=== PATIENT | female | born 1985 | race Caucasian/White ===

== ENCOUNTER 2017-02-21 17:17 | Emergency (ER) | payer OTHER ==
[~2017-02-21] VITALS: Ht 162.6 cm; Wt 110.2 kg
[~2017-02-21 17:17] MED LIST: FLEXERIL10 MG PO; MOBIC15 MG PO; VIBRAMYCIN 100100 MG PO
[2017-02-21 17:20] VITALS: BP 135/81
--- NOTE | 2017-02-21 17:36 | ED INFLUENZA/URI COMPLAINT ---
History of Present Illness General Chief Complaint: General Adult Stated Complaint: PT HAS A DRY COUGH Source: patient Exam Limitations: no limitations Vital Signs & Intake/Output Vital Signs & Intake/Output Vital Signs Date Time Temp Pulse Resp B/P B/P Pulse O2 O2 Flow FiO2 Mean Ox Delivery Rate 02/21 1720 98.8 100 18 135/81 98 Room Air Allergies Coded Allergies: amoxicillin (Severe, ANAPHYLAXIS 02/21/17) mushroom (ANAPHYLAXIS 02/21/17) Reconcile Medications Azithromycin (Zithromax) 250 MG TABLET 1 DP PO AD URI 2 the first day followed by 1 for days 2-5 Vit No.130/Iron/FA ( Tablet) 27 MG IRON-800 MCG TABLET 1 TAB PO DAILY (Reported) Triage Note: PT STATES THAT SHE IS 3 MONTHS AND THAT SHE HAS HAD A DRY COUGH SINCE YESTERDAY. AFEBRILE Triage Nurses Notes Reviewed? yes : Yes Patient currently breastfeeds: No Past History Travel History Traveled to [place] past 21 day No Medical History Any Pertinent Medical History? 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 No Departure Departure Condition: Stable Referrals: PATIENT HAS NO PRIMARY CARE DR (PCP/Family) Departure Forms: Customer Survey General Discharge Information Prescriptions: Current Visit Scripts Azithromycin (Zithromax) 1 DP PO AD #6 TAB 2 the first day followed by 1 for days 2-5
--- NOTE | 2017-02-21 17:48 | ED INFLUENZA/URI COMPLAINT ---
History of Present Illness General Chief Complaint: General Adult Stated Complaint: PT HAS A DRY COUGH Source: patient Exam Limitations: no limitations Vital Signs & Intake/Output Vital Signs & Intake/Output Vital Signs Date Time Temp Pulse Resp B/P B/P Pulse O2 O2 Flow FiO2 Mean Ox Delivery Rate 02/21 1720 98.8 100 18 135/81 98 Room Air Allergies Coded Allergies: amoxicillin (Severe, ANAPHYLAXIS 02/21/17) mushroom (ANAPHYLAXIS 02/21/17) Reconcile Medications Azithromycin (Zithromax) 250 MG TABLET 1 DP PO AD URI 2 the first day followed by 1 for days 2-5 Vit No.130/Iron/FA ( Tablet) 27 MG IRON-800 MCG TABLET 1 TAB PO DAILY (Reported) Triage Note: PT STATES THAT SHE IS 3 MONTHS AND THAT SHE HAS HAD A DRY COUGH SINCE YESTERDAY. AFEBRILE Triage Nurses Notes Reviewed? yes Onset: Abrupt Duration: day(s): (1), constant Timing: recent history Severity: mild, moderate No Modifying Factors: none : Yes Patient currently breastfeeds: No HPI: 31-year-old female comes into emergency room for further evaluation of cough runny nose sore throat sinus congestion. Cough is dry. Symptoms of going on since yesterday. Some mild associated tightness with the cough. Denies any chest pain otherwise or shortness of breath. Denies any fever or vomiting. Denies any abdominal pain or vaginal bleeding or leakage of fluid. Denies any complications in the so far. Positive sick contacts with with family friend. (LEMUEL KAMARA) Past History Travel History Traveled to [place] past 21 day No Medical History Any Pertinent Medical History? 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 No (LEMUEL KAMARA) Review of Systems Review of Systems Constitutional: Reports: see HPI. EENTM: Reports: see HPI. Respiratory: Reports: see HPI. Cardiovascular: Reports: no symptoms. GI: Reports: no symptoms. Genitourinary: Reports: no symptoms. Musculoskeletal: Reports: no symptoms. Skin: Reports: no symptoms. Neurological/Psychological: Reports: no symptoms. Hematologic/Endocrine: Reports: no symptoms. Immunologic/Allergic: Reports: no symptoms. All Other Systems: Reviewed and Negative (LEMUEL KAMARA) Physical Exam Physical Exam General Appearance: well developed/nourished, alert, awake Head: atraumatic, normal appearance Eyes: Bilateral: normal appearance, EOMI. Ears, Nose, Throat: normal ENT inspection, moist mucous membrane, hearing grossly normal Neck: normal inspection, supple Respiratory: normal breath sounds, no respiratory distress Cardiovascular: regular rate/rhythm Back: normal inspection Extremities: normal inspection, normal range of motion, no edema Neurologic/Psych: awake, alert, oriented x 3 Skin: intact, normal color Core Measures Severe Sepsis Present: No Septic Shock Present: No (LEMUEL KAMARA) Progress Differential Diagnosis: influenza, meningitis, neutropenia, otitis, pneumonia, pharyngitis, sinusitis Plan of Care: 02/21/2017 6:03:45 PM Patient clinically looks well. Patient is nontoxic-appearing. Patient is in no apparent distress. Symptoms are most consistent with upper respiratory infection/sinusitis/bronchitis. Patient cover with amoxicillin. Symptoms are likely viral. No suspicion for any other event such as pulmonary embolism or PR. Patient has all symptoms to go along with viral illness. Case discussed with Dr. Caputo. Patient will follow up appropriately. Return if any other concerns worsening symptoms. Initial ED EKG: none (LEMUEL KAMARA) Departure Departure Disposition: HOME OR SELF CARE Condition: Stable Clinical Impression Primary Impression: URI (upper respiratory infection) Referrals: PATIENT HAS NO PRIMARY CARE DR (PCP/Family) Additional Instructions: Taking z-pack as prescribed. Rest. Drink fluids. 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 Follow-up with your primary care doctor. Return if any concerns worsening symptoms. Please go over all results of today's visit with your primary care doctor. Contact your primary care doctor to let them know you were here in the emergency room. There may be nonspecific findings which may not be related to your visit today here in the emergency room but may require further evaluation and chronic monitoring by your primary care doctor. If you had a laceration today the chance of foreign body always remains. You should follow-up with your primary care doctor for recheck in 3-5 days for a wound check. If you had an x-ray done there is a chance that a fracture could have been missed on initial read and you should follow-up with your primary care doctor for repeat x-rays if symptoms persist. If your blood pressure was elevated here in the emergency room please have rechecked by her primary care doctor within the next 48 hours by your primary care doctor. If you were prescribed a narcotic here in the emergency room or any type of controlled substances you're not allowed to drive while taking this medication or operate any type of heavy machinery. Narcotics can make you feel lightheaded dizziness nausea and can cause constipation. You may need to meat pickler a stool softener. Thank you for choosing [facility] emergency room. Please return to the emergency room immediately if you have any other concerns worsening of symptoms. 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 I have also reviewed all the pertinent lab results and diagnostic results. I agree with the findings and the plan of care as documented in the PA's/WHOLESALE LOAN PROCESSOR's documentation. [X] I have reviewed the ED Record and agree with the PA's/WHOLESALE LOAN PROCESSOR's documentation. [] Additions or exceptions (if any) to the PAs/WHOLESALE LOAN PROCESSOR's note and plan are summarized below: [] (MAX ELIAS,SERJIO Gutierrez)
[2017-02-21] MEDS ORDERED: ZITHROMAX250 M2 PO (17:52)
[2017-02-21] MEDS ORDERED: PRENATAL TABLE1 EAC2 PO (17:53)
== END 2017-02-21 18:02 ==
LOC: ERH 17:17
DX: J06.9 Acute upper respiratory infection, unspecified (principal)

== ENCOUNTER 2017-12-17 09:03 | Emergency (ER) | payer OTHER ==
[~2017-12-17] VITALS: Ht 162.6 cm; Wt 104.3 kg
[~2017-12-17 09:03] MED LIST changes: +IBUPROFEN800 M1 PO; +PRENATAL TABLE1 EAC2 PO; +ZITHROMAX250 M2 PO
--- NOTE | 2017-12-17 10:07 | ED CARDIAC/CP/PALPITATIONS ---
History of Present Illness General Chief Complaint: Chest Pain Stated Complaint: CP Source: patient Exam Limitations: no limitations Vital Signs & Intake/Output Vital Signs & Intake/Output Vital Signs Date Time Temp Pulse Resp B/P B/P Pulse O2 O2 Flow FiO2 Mean Ox Delivery Rate 12/17 1129 97.8 77 20 140/68 96 Room Air 12/17 1108 97.0 12/17 0909 97.0 77 20 137/84 99 Room Air Allergies Coded Allergies: amoxicillin (Severe, ANAPHYLAXIS 02/21/17) mushroom (ANAPHYLAXIS 02/21/17) Reconcile Medications Cyclobenzaprine HCl 5 MG TABLET 1 TAB PO Q12P PRN Muscle Pain Please avoid taking the medication if you anticipate driving as it may cause sedation Diclofenac Potassium 50 MG TABLET 1 TAB PO Q8P PRN Pain Triage Note: PT C/O CP SINCE 399. STATES SHE THOUGHT IT WAS HEARTBURN AND TOOK 2 ASA. PT DENIES SOB. Triage Nurses Notes Reviewed? yes Onset: Abrupt Duration: hour(s): (6) Timing: single episode today Quality/Severity: moderate, tightness Location: central Radiation: no radiation Activities at Onset: none Prior Chest Pain/Card Workup: no prior chest pain Nitro Today/Relief: no nitro taken today Aspirin Today: 81 mg x 2 : No Patient currently breastfeeds: No HPI: 32 yo F with no PMH presents to the ED with complains of chest pain since this morning. The patient states that she woke up at around 4am this morning, with a chest tightness in the center of her chest. She took two aspirin which did not provide her any relief. She describes the pain as a tightness, non radiating, aggravating with breathing out, without any associated factors. No prior similar episodes. No associated symptoms. Has heartburn occasionally but states this one is completely different. Smokes 10-15 cigarettes a day. (Zaina ELIAS,[facility]) Past History Travel History Traveled to [place] past 21 day No Medical History Any Pertinent Medical History? 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 Yes (Becky Mahajan MD) Review of Systems Review of Systems Constitutional: Denies: chills, fever. EENTM: Reports: no symptoms. Respiratory: Denies: cough, short of breath. Cardiovascular: Reports: chest pain. GI: Denies: abdominal pain. Genitourinary: Reports: no symptoms. Musculoskeletal: Denies: joint pain. Skin: Reports: no symptoms. Neurological/Psychological: Reports: no symptoms. (Becky Mahajan MD) Physical Exam Physical Exam General Appearance: well developed/nourished, alert, awake, mild distress Head: atraumatic, normal appearance Eyes: Bilateral: normal appearance. Respiratory: normal breath sounds, chest non-tender, lungs clear Cardiovascular: regular rate/rhythm, midline chest wall tenderness Gastrointestinal: soft, non-tender Extremities: no edema Neurologic/Psych: awake, alert, oriented x 3 Skin: intact, normal color Core Measures ACS in differential dx? No CVA/TIA Diagnosis No Sepsis Present: No Sepsis Focused Exam Completed? No (Becky Mahajan MD) Progress Differential Diagnosis: musculoskeletal pain Plan of Care: Orders Procedure Date/time Status TROPONIN LEVEL 12/17 1001 Complete CBC WITHOUT DIFFERENTIAL 12/17 1001 Complete BASIC ELECTROLYTES PLUS BUN&CR 12/17 1001 Complete EKG 12/17 0903 Active Laboratory Tests 12/17/17 1022: Anion Gap 14, Estimated GFR > 60, BUN/Creatinine Ratio 16.7, Troponin I < 0.01, CBC w Diff NO MAN DIFF REQ, RBC 5.05, MCV 90.2, MCH 31.0, MCHC 34.3, RDW 13.9, MPV 8.5, Gran % 61.8, Lymphocytes % 29.8, Monocytes % 6.6, Eosinophils % 1.1, Basophils % 0.7, Absolute Granulocytes 5.7, Absolute Lymphocytes 2.8, Absolute Monocytes 0.6, Absolute Eosinophils 0.1, Absolute Basophils 0.1 Initial ED EKG: NSR Comments: Patient's blood work has been negative for ACS so far. Plan of care was to obtain a second set of troponins and EKG 3 hours apart. However, the patient does not want to wait another 3 hours for a repeat blood work as she has a kid waiting at home. She has been strongly advised to return to the ED if her symptoms worsen. Also to follow up with her PCP within one week of discharge. She understands. (Becky Mahajan MD) Departure Departure Time of Disposition: 1120 Disposition: HOME OR SELF CARE Condition: Stable Clinical Impression Primary Impression: Musculoskeletal chest pain Referrals: Patient Has No Primary Care Dr (PCP/Family) Additional Instructions: Please follow up with your primary care physician within one week of discharge. Please return to the ED for any worsening symptoms or concerns. Departure Forms: Customer Survey General Discharge Information Prescriptions: Current Visit Scripts Diclofenac Potassium 1 TAB PO Q8P PRN Pain #20 TAB Cyclobenzaprine HCl 1 TAB PO Q12P PRN Muscle Pain #20 TAB Please avoid taking the medication if you anticipate driving as it may cause sedation (Becky Mahajan MD) Resident Co-Sign Statement Statement: ED Attending supervision documentation- [x] I saw and evaluated the patient. I have also reviewed all the pertinent lab results and diagnostic results. I agree with the findings and the plan of care as documented in the Resident's documentation. [] I have reviewed the ED Record and agree with the Resident's documentation. [] Additions or exceptions (if any) to the Resident's note and plan are summarized below: [] (Samira ELIAS,Theron Calero) Critical Care Note Critical Care Note Critical Care Time: non-applicable (Becky Mahajan MD)
[2017-12-17 10:32] LABS: ABSOLUTE BASOPHIL COUNT 0.1 /CUMM (0.0-0.2); ABSOLUTE EOSINOPHIL COUNT 0.1 /CUMM (0.0-0.7); ABSOLUTE GRANULOCYTE CT 5.7 /CUMM (1.4-6.5); ABSOLUTE LYMPH COUNT 2.8 /CUMM (1.2-3.4); ABSOLUTE MONOCYTE COUNT 0.6 /CUMM (0.10-0.60); BASOPHIL % 0.7 % (0.0-2.0); EOSINOPHIL % 1.1 % (0-5); GRANULOCYTE % 61.8 % (42.2-75.2); HEMATOCRIT 45.6 % (37-47); MEAN CORPUSCULAR HGB CONC 34.3 G/DL (33.0-37.0); MEAN CORPUSCULAR VOLUME 90.2 FL (81.0-99.0); MEAN PLATELET VOLUME 8.5 FL (7.4-10.4); PLATELET COUNT 384 /CUMM (130-400); RBC DISTRIBUTION WIDTH 13.9 % (11.5-14.5); RED BLOOD CELL CT 5.05 /CUMM (4.20-5.40); WHITE BLOOD CELL COUNT 9.2 /CUMM (4.8-10.8)
[2017-12-17] MEDS ORDERED: DICLOFENAC POTA50 M1 PO (11:22)
[2017-12-17] MEDS ORDERED: CYCLOBENZAPRINE5 M2 PO (11:22)
[2017-12-17 11:29] VITALS: BP 140/68
== END 2017-12-17 11:51 ==
LOC: ERH 09:03
PROVIDERS: Internal Medicine
DX: R07.89 Other chest pain (principal)
CPT/HCPCS: 82436; 93005; 93010